=== PATIENT | female | born 1945 | race Caucasian/White ===

== ENCOUNTER → 2022-04-16 | Outpatient (CLI) | payer MEDICARE, MEDICAID, SELFPAY ==
[2022-04-21 09:38] LABS: Calprotectin, Stool 112 ug/g (0-120)
== END | disposition home or self-care (01) ==
LOC: LABSPEC 14:56
PROVIDERS: Referring Provider Nurse Practitioner Adult Health; Visit Provider Nurse Practitioner Adult Health
DX: G10 Huntington's disease (principal); K21.9 Gastro-esophageal reflux disease without esophagitis; R13.10 Dysphagia, unspecified; R19.7 Diarrhea, unspecified; K58.9 Irritable bowel syndrome, unspecified
CPT/HCPCS: 83630; 83993; 87493; 87506

== ENCOUNTER → 2022-04-27 | Outpatient (CLI) | payer MEDICARE, MEDICAID, SELFPAY ==
--- NOTE | 2022-04-27 12:34 | SP.MBSS_ITS ---
Modified Barium Swallow - Patient Information Study Date: 04/27/22 Study Time: 13:00 Direct Billable Minutes: 83 Total Minutes procedure & reportin Diagnosis: Elin's disease (G10), Dysphagia, unspecified (R13.10) Referring Physician: Floresita Abreu NP Reason for Referral: Objectively assess swallow function, assess risk for aspiration, and determine recommendations for least restrictive diet textures and compensatory strategies to improve safety of swallow. 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 Pt was referred for MBSS from gastroenterology DATA PROCESSOR, Floresita Abreu, to assess pt?s complaints of difficulty swallowing. Pt reports daily sore throat which affects her ability to enjoy foods per DATA PROCESSOR?s 04/01/2022 office visit. Prior to study, pt reports sensation of both food and drink caught in her throat at times when swallowing, as well as coughing when consuming both foods and drinks. She denies history of choking. She stated meats and some breads are difficult to chew. Current Diet Ordered: Regular textures / Thin liquids Dentition: Missing Teeth Mental Status: WNL - Able to follow commands for evaluation with repetition Respiratory Status: Oxygenating on Room Air - Penetration-Aspiration Scale Penetration-Aspiration Scale: OBJECTIVE ASSESSMENT OF SWALLOW FUNCTION (QUANTITATIVE ? PER TRIAL): PENETRATION / ASPIRATION SCALE (MAYA): 1 = does not enter airway 2 = enters airway/above vocal folds/ejected 3 = enters airway/above vocal folds/not ejected 4 = enters airway/contacts vocal folds/ejected 5 = enters airway/contacts vocal folds/not ejected 6 = enters airway/below vocal folds/ejected 7 = enters airway/below vocal folds/not ejected despite effort 8 = enters airway/below vocal folds/no effort VIDEOFLOROSCOPIC SCALE SCORE (MAYA): Grade I = aspiration of material that has penetrated into the laryngeal vestibule, intact cough reflex Grade II = aspiration < 10 % of the bolus, intact cough reflex Grade III = aspiration of < 10 % of the bolus, reduced cough reflex or aspiration of > 10 % of the bolus, intact cough reflex Grade IV = aspiration of > 10 % of the bolus, reduced cough reflex - Penetration-Aspiration Scale Score Thin Liquid via teaspoon Result: 1= does not enter airway Thin Liquid via teaspoon Trial 2 Result: 2= enter airway/above vocal folds/ejected Thin Liquid via small single sip from cup Result: 1= does not enter airway [place] Thick Liquid via large single sip from cup Result: 1= does not enter airway Pudding via teaspoon with esophageal screen Result: 1= does not enter airway 1/4 Cookie Result: 1= does not enter airway Thin Liquid via single sip from straw Result: 3= enters airways/above vocal folds/not ejected Thin Liquid via large single sip from cup Result: 1= does not enter airway - Oral Phase Labial Seal: Interlabial escape, no progression to anterior lip Tongue Control During Bolus Hold: Posterior escape of less than half of bolus Bolus Preparation/Mastication: Disorganized chewing/mashing with solid pieces of bolus unchewed Bolus Transport/Lingual Motion: Slowed tongue motion Oral Residue: Residue collection on oral structures - piecemeal of cookie, collection of residue of large sips - Pharyngeal Phase Initiation of Pharyngeal Swallow: Bolus head in pyriforms - laryngeal vestibule for tsp sip of thin Soft Palate Elevation: No bolus between soft palate and pharyngeal wall Laryngeal Elevation: Partial superior movement thyroid cart/partial apprx aryt- epig petiole Anterior Hyoid Excursion: Partial anterior movement Epiglottic Movement: Complete inversion Laryngeal Vestibule Closure at Height of Swallow: Incomplete; narrow column of air/contrast in laryngeal vestibule Pharyngeal Stripping Wave: Present - complete Pharyngoesophageal Segment Opening: Parital distension and partial duration; parital obstruction of flow Tongue Base Retraction: Narrow column of contrast between tongue base & post. pharyngeal wall Pharyngeal Residue: Trace residue within or on pharyngeal structures - Esophageal Phase Esophageal Clearance: Complete clearance - Diagnosis/Impression Diagnosis: Mild-moderate oropharyngeal phase dysphagia (R13.12) Impression: The oral phase is primarily marked by... -Decreased bolus control with <1/2 of the bolus spilling posteriorly to the pyriforms prior to swallow onset observed with large sips of thin liquids especially. Thin by tsp did spill to the laryngeal vestibule on second trial prior to swallow onset. -Slowed tongue motion for A-P transport. -Mild oral residue of large sips of liquid. -Quick mastication, small portions of cookie appeared un-chewed during the swallow. Piecemeal deglutition observed. The pharyngeal phase is primarily marked by... -Mildly decreased airway closure during the swallow due to moderately decreased anterior hyoid excursion and mildly decreased laryngeal elevation. -Mildly decreased tongue base retraction and mildly decreased UES opening/duration with resulting trace pharyngeal residues after the swallow. Ora l residue of large cup sip of thin liquids spilled posteriorly to the pharynx after the swallow was completed. -No aspiration observed during the study; however, cannot definitively rule out aspiration on certain trials as the patient would at times move out of view of fluoroscopy due to extraneous movements secondary to Pawnee's diagnosis. Laryngeal penetration of thin liquids via straw, which did not fully eject from the laryngeal vestibule after the swallow. -Pt had slightly improved swallow onset with thin liquids via cup as compared to thin liquids via straw. The esophageal phase is primarily marked by... -Anterior cervical osteophytes at the level of C-5 and C-6, which did not appear to impact bolus clearance through the UES. - Recommendations Diet: Thin Liquids - Easy to Chew textures (IDDSI Level 7) Compensatory Strategies: Small Bites - chew thoroughly, Small Sips, No Straws, Slow Rate, Sitting upright, Remain sitting upright for 30 minutes after PO intake Supervision: 1:1 Close Supervision Recommend Repeat Modified Barium Swallow: TBD Need for Skilled Speech Therapy Services: Yes Comment: Will recommend the patient for skilled dysphagia therapy to address mild- moderate deficits in oropharyngeal swallow function. Will recommend the patient for oropharyngeal strengthening to improve lingual control, tongue base retraction, laryngeal elevation, and hyoid excursion (lingual resistance exercises, Vee, CTAR, effortful breath hold and swallow). The patient would benefit from thorough education regarding diet recommendations and recommended compensatory strategies, especially to chew more thoroughly and consume small sips. Would consider use of Provale bolus control cup if pt is unable to reliably control sip size given frequent extraneous movements secondary to Pawnee's diagnosis. Education Completed: 1. Described result of evaluation., 2. Pt understands evaluation & agrees with goals and treatment plan., 7. Pt requires further education on strategies & risks. - Status Active ST Patient: Active - Contact Information [facility] Speech Therapy:: Sakshi Paluson M.A. [facility] Speech-Language Pathologist [facility] [address] [place] [address] [email or web address] [phone] 04/27/22 12:38
== END | disposition home or self-care (01) ==
LOC: RAD 12:47
PROVIDERS: PCP Family Medicine; Visit Provider Nurse Practitioner Adult Health
DX: G10 Huntington's disease (principal); R13.12 Dysphagia, oropharyngeal phase
CPT/HCPCS: 74230; 92611

== ENCOUNTER 2022-05-31 10:24 | Day surgery (SDC) | payer MEDICARE, MEDICAID, SELFPAY ==
[2022-05-31] VITALS (7 sets, daily range): BP systolic 106–124; BP diastolic 52–91; PULSE 65–76; RESP 16; TEMP 36.3–36.5; O2SAT 100; BMI 22.6
--- NOTE | 2022-05-31 | COLBX_PTH ---
PATIENT: JUSTICE LUCIA LOC: EN U#:[id number] AGE/SX: 76/F ROOM: RE05/31/[address]: Dr. Zuhair Hallman DO : 1945 BED: DIS: 05/31/2022 SPEC #: [id number] RECD: 05/31/22 13:41 STATUS: MIKAELA VARGAS #: [id number] DANN: 05/31/22 00:[address]: Zuhair Hallman DEPT: SURGICAL PATHOLOGY RECD BY: Joe Matta ENTERED: 06/01/22 10:07 SP TYPE: COLON BX OTHR DR: Dr. Parker Barajas MD Tissues: Transverse colon Procedures: Surgery Specimen Level IV HEADER OPERATION: Colonoscopy, polypectomy, [place] [place]hemostasis PRE-OP DIAGNOSIS: Chronic diarrhea, GERD, dysphagia, Shelby?s disease, anemia TISSUE SUBMITTED: Transverse colon polyp MICROSCOPIC DIAGNOSIS Transverse colon polyp, polypectomy: Tubular adenoma. SJ:rachael 06/02/2022 MICROSCOPIC DESCRIPTION Slides are reviewed. GROSS DESCRIPTION Received in fixative is one container labeled with the patient's name and designated transverse colon polyp. The specimen consists of a colorado-pink polyp measuring 0.8 x 0.7 x 0.3 cm. The specimen is totally submitted in one cassette. / CRISTOBAL:rachael 06/01/2022 TC:1 CPT: 71560
[2022-05-31] MEDS: Lactated Ringers 1,000 ML 15 ML IV (10:40)
--- NOTE | 2022-05-31 10:50 | PCM.HP.BLA ---
History and Physical Date of Admission: 05/31/22 76 F who presents to the office today to establish for GERD, anemia, chronic diarrhea. She is a resident at [facility] in [place]. She has had diarrhea forever, for at least 20 years. But she also tells me she can have constipation also.? It is a bit difficult to get a history today.? She is unaccompanied.? Last colonoscopy was more than 10 yrs ago, hx diverticula and polyps. Says diarrhea is better recently, maybe since going off metformin 3 months ago. Diarrhea used to wake her at night. No longer having diarrhea every day. Certain foods can cause diarrhea. Can't tell me how often diarrhea occurs. No melena or hematochezia. Weight is stable. Decreased appetite, it sounds like this is not new. Pt reports daily heartburn, worse with certain foods, on omeprazole 40 mg daily. In 10/2021 she reported sore throat, was changed from famotidine to PPI then, pt doesn't know if that medication change helped or not. Has sore throat daily, so it can be difficult to enjoy foods. Has trouble swallowing, no choking or food sticking. No swallowing study--pt reports it was scheduled but cancelled, maybe due to bad weather. Sometimes has epigastric pain after eating, and may have some nausea. No vomiting. 11/2021 labs: hgb 10.2, vitamin B12 85 L 03/2022 hgb 10.5 Exam Const General: cooperative and comfortable Nutritional Appearance: average body habitus Orientation: alert, awake and oriented x3 Eyes Conjunctivae: conjunctivae normal Sclera: sclerae normal Resp Effort & Inspection: normal respiratory effort GI Inspection: normal to inspection Palpation: soft, no hepatosplenomegaly, no masses and nontender Neuro Other: mild chorea, in wheelchair Extrem General: normal to inspection Psych Mood: euthymic mood Assessment and Plan Assessment and Plan (1) Chronic diarrhea: ?Status:?Chronic ?Plan: So 26-[facility]-old female [facility] with Elin's disease establishes with us today for GERD, anemia, diarrhea, request for colonoscopy.? We will get stool tests for infection and inflammation.? She will be scheduled for EGD and colonoscopy considering anemia, heartburn, dysphagia, diarrhea. She is on FiberLax which I was considering discontinuing but she also says she can have constipation so no medication changes made at this time. (2) GERD (gastroesophageal reflux disease): ?Status:?Acute ?Plan: EGD to evaluate for esophagitis, dysmotility, stricture, Cardenas's, gastritis, PUD Continue omeprazole 40 mg daily (3) Dysphagia: ?Status:?Acute ?Plan: Refer to Speech for MBSS (4) Sierra's disease: ?Status:?Acute ?Plan: Refer to Speech for MBSS (5) Anemia: ?Status:?Acute ?Plan: EGD and colonoscopy with follow-up in office 2 weeks later ? ? ? Orders: Orders CDIFF (PCR) Today K21.9 - Gastro-esophageal reflux disease without esophagitis, K52.9 - Noninfective gastroenteritis and colitis, unspecified ? ENTERIC PATHOGEN PANEL STOOL Today K58.9 - Irritable bowel syndrome without diarrhea, R19.7 - Diarrhea, unspecified ? Calprotectin, Stool Today K52.9 - Noninfective gastroenteritis and colitis, unspecified ? Stool Lactoferrin/WBC Today K52.9 - Noninfective gastroenteritis and colitis, unspecified, K58.9 - Irritable bowel syndrome without diarrhea ? Referrals Speech Therapy Referral ? G10 - Elin's disease, R13.10 - Dysphagia, unspecified ? I have examined the patient and the H&P has been reviewed. There are no clinical changes since date of exam.
--- NOTE | 2022-05-31 12:09 | OP.EGD_ITS ---
Patient Name: Miya Harp Procedure Date: 05/31/2022 11:33 AM Date of : 1945 Age: 76 Procedure: Upper GI endoscopy Indications: Iron deficiency anemia Providers: Zuhair Hallman DO Medicines: Monitored Anesthesia Care Patient Profile: This is a 76 year old female. Refer to note in patient chart for documentation of history and physical. Patient has symptoms. Complications: No immediate complications. Procedure: Pre-Anesthesia Assessment: - Prior to the procedure, a History and Physical was performed, and patient medications and allergies were reviewed. The patient is competent. The risks and benefits of the procedure and the sedation options and risks were discussed with the patient. All questions were answered and informed consent was obtained. Patient identification and proposed procedure were verified by the physician. Mental Status Examination: normal. Prophylactic Antibiotics: The patient does not require prophylactic antibiotics. Prior Anticoagulants: The patient has taken no previous anticoagulant or antiplatelet agents. ASA Grade Assessment: II - A patient with mild systemic disease. After reviewing the risks and benefits, the patient was deemed in satisfactory condition to undergo the procedure. The anesthesia plan was to use monitored anesthesia care (MAC). Immediately prior to administration of medications, the patient was re-assessed for adequacy to receive sedatives. The heart rate, respiratory rate, oxygen saturations, blood pressure, adequacy of pulmonary ventilation, and response to care were monitored throughout the procedure. The physical status of the patient was re-assessed after the procedure. After obtaining informed consent, the endoscope was passed under direct vision. Throughout the procedure, the patient's blood pressure, pulse, and oxygen saturations were monitored continuously. The pediatric colonoscope was introduced through the mouth, and advanced to the second part of duodenum. The upper GI endoscopy was accomplished without difficulty. The patient tolerated the procedure well. Scope In: 11:37:53 AM Scope Out: 11:41:44 AM Total Procedure Duration Time 0 hours 3 minutes 51 seconds Findings: The examined esophagus was normal. A single 5 mm bleeding angiodysplastic lesion was found on the greater curvature of the stomach. Coagulation for hemostasis using heater probe was successful. Estimated blood loss was minimal. The second portion of the duodenum was normal. Impression: - Normal esophagus. 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 Treated with a heater probe. - Normal second portion of the duodenum. - No specimens collected. Recommendation: - Discharge patient to home. - Resume previous diet. - Continue present medications. Procedure Code(s): --- Professional --- 94208, Esophagogastroduodenoscopy, flexible, transoral; with control of bleeding, any method CPT copyright 2017 [employer]. All rights reserved. The codes documented in this report are preliminary and upon jacker review may be revised to meet current compliance requirements. Zuhair Hallman DO 05/31/2022 12:08:23 PM This report has been signed electronically. Number of Addenda: 0 Note Initiated On: 05/31/2022 11:33 AM
--- NOTE | 2022-05-31 12:09 | OP.CCLET_ITS ---
05/31/2022 Parker Barajas Re : Upper GI endoscopy procedure for Miya Harp Dear Jenn This procedure was performed on Tuesday, May 31, 2022. My impressions and recommendations are as follows: Impressions : - Normal esophagus. 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 Treated with a heater probe. - Normal second portion of the duodenum. - No specimens collected. Recommendations : - Discharge patient to home. - Resume previous diet. - Continue present medications. My findings are described in the full procedure note, which is enclosed. If I can be of further assistance, please feel free to contact me at . Sincerely, Zuhair Hallman, 05/31/2022 12:08:23 PM This report has been signed electronically.
--- NOTE | 2022-05-31 12:13 | OP.COLON_ITS ---
Patient Name: Miya Harp Procedure Date: 05/31/2022 11:42 AM Date of : 1945 Age: 76 Procedure: Colonoscopy Indications: Iron deficiency anemia Providers: Zuhair Hallman DO Medicines: Monitored Anesthesia Care Patient Profile: This is a 76 year old female. Refer to note in patient chart for documentation of history and physical. Patient has symptoms. Last Colonoscopy: date unknown. Unable to locate last colonoscopy report. Complications: No immediate complications. Procedure: Pre-Anesthesia Assessment: - Prior to the procedure, a History and Physical was performed, and patient medications and allergies were reviewed. The patient is competent. The risks and benefits of the procedure and the sedation options and risks were discussed with the patient. All questions were answered and informed consent was obtained. Patient identification and proposed procedure were verified by the physician. Mental Status Examination: normal. Prophylactic Antibiotics: The patient does not require prophylactic antibiotics. Prior Anticoagulants: The patient has taken no previous anticoagulant or antiplatelet agents. ASA Grade Assessment: II - A patient with mild systemic disease. After reviewing the risks and benefits, the patient was deemed in satisfactory condition to undergo the procedure. The anesthesia plan was to use monitored anesthesia care (MAC). Immediately prior to administration of medications, the patient was re-assessed for adequacy to receive sedatives. The heart rate, respiratory rate, oxygen saturations, blood pressure, adequacy of pulmonary ventilation, and response to care were monitored throughout the procedure. The physical status of the patient was re-assessed after the procedure. After I obtained informed consent, the scope was passed under direct vision. Throughout the procedure, the patient's blood pressure, pulse, and oxygen saturations were monitored continuously. The colonoscope was introduced through the anus and advanced to the cecum, identified by appendiceal orifice and ileocecal valve. The colonoscopy was performed without difficulty. The patient tolerated the procedure well. The quality of the bowel preparation was adequate. Scope In: 11:44:04 AM Scope Withdrawal Time 0 hours 5 minutes 33 seconds Scope Out: 11:59:43 AM Total Procedure Duration Time 0 hours 15 minutes 39 seconds Findings: The perianal and digital rectal examinations were normal. A 9 mm polyp was found in the transverse colon. The polyp was sessile. The polyp was removed with a hot snare. Resection and retrieval were complete. Verification of patient identification for the specimen was done. Estimated blood loss was minimal. Multiple small-mouthed diverticula were found in the recto-sigmoid colon, sigmoid colon and transverse colon. The exam was otherwise without abnormality on direct and retroflexion views. Impression: - One 9 mm polyp in the transverse colon, removed with a hot snare. Resected and retrieved. - Diverticulosis in the recto-sigmoid colon, in the sigmoid colon and in the transverse colon. - The examination was otherwise normal on direct and retroflexion views. Recommendation: - Discharge patient to home. - Resume previous diet. - Continue present medications. - Await pathology results. - Repeat colonoscopy in 5 years for surveillance. Procedure Code(s): --- Professional --- 64323, Colonoscopy, flexible; with removal of tumor(s), polyp(s), or other lesion(s) by snare technique CPT copyright 2017 [employer]. All rights reserved. The codes documented in this report are preliminary and upon animal rescuer review may be revised to meet current compliance requirements. Zuhair Hallman DO 05/31/2022 12:13:08 PM This report has been signed electronically. Number of Addenda: 0 Note Initiated On: 05/31/2022 11:42 AM
--- NOTE | 2022-05-31 12:14 | OP.CCLET_ITS ---
05/31/2022 Parker Barajas Re : Colonoscopy procedure for Miya Harp Dear Jenn This procedure was performed on Tuesday, May 31, 2022. My impressions and recommendations are as follows: Impressions : - One 9 mm polyp in the transverse colon, removed with a hot snare. Resected and retrieved. - Diverticulosis in the recto-sigmoid colon, in the sigmoid colon and in the transverse colon. - The examination was otherwise normal on direct and retroflexion views. Recommendations : - Discharge patient to home. - Resume previous diet. - Continue present medications. - Await pathology results. - Repeat colonoscopy in 5 years for surveillance. My findings are described in the full procedure note, which is enclosed. If I can be of further assistance, please feel free to contact me at . Sincerely, Zuhair Hallman, 05/31/2022 12:13:08 PM This report has been signed electronically.
[2022-05-31 12:25] LABS: Bedside Glucose 217 mg/dL (74-106)
== END 2022-05-31 13:07 | disposition home or self-care (01) ==
LOC: EN 10:40 → AC 10:45
PROVIDERS: PCP Family Medicine; Referring Provider Family Medicine; Visit Provider Internal Medicine Gastroenterology
PROC: 0DJD8ZZ Inspection of Lower Intestinal Tract, Via Natural or Artificial Opening Endoscopic (ICD-10-PCS; CPT 45378; principal; 2022-05-31 11:10)
DX: K31.811 Angiodysplasia of stomach and duodenum with bleeding (principal); G10 Huntington's disease; E11.9 Type 2 diabetes mellitus without complications; R13.10 Dysphagia, unspecified; D50.9 Iron deficiency anemia, unspecified; K21.9 Gastro-esophageal reflux disease without esophagitis; K57.30 Diverticulosis of large intestine without perforation or abscess without bleeding; D12.3 Benign neoplasm of transverse colon; I10 Essential (primary) hypertension; Z79.899 Other long term (current) drug therapy; E78.5 Hyperlipidemia, unspecified; E03.9 Hypothyroidism, unspecified; K58.0 Irritable bowel syndrome with diarrhea
CPT/HCPCS: 45385; 43255; 82962; 88305; J7120; J2405

== ENCOUNTER → 2022-08-06 | Outpatient (CLI) | payer MEDICARE, MEDICAID, SELFPAY ==
--- NOTE | 2022-08-06 09:15 | RAD_ITS ---
STUDY: X-RAY - ESOPHAGUS (BARIUM SWALLOW) WITH FLUOROSCOPY REASON FOR EXAM: Female, 76 years old. DYSPHAGIA 12 MM TABLET TECHNIQUE: 17 view(s) of the esophagus were obtained following swallowing of barium. FLUOROSCOPY TIME (if supplied): (42 seconds) minutes/seconds. 16.49 mGy COMPARISON: None. FINDINGS: Limited study due to the patient''s medical condition. There is no demonstrated esophageal foreign body. 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 There is narrowing at the gastroesophageal junction. There appears to be edema of the mucosal folds. Correlation with endoscopy is recommended. Patient was unable to ingest a 12 mm tablet of barium. There is atherosclerotic calcification of the aortic arch with tortuosity of the descending aorta. Normal visualized pulmonary parenchyma. There are diffuse degenerative changes of the visualized thoracic spine. 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 Endoscopic correlation is recommended. Electronically Signed: Jesse Landon MD at 14:58 EDT ,
== END | disposition home or self-care (01) ==
LOC: RAD 08:58
PROVIDERS: PCP Family Medicine; Visit Provider Otolaryngology
DX: R13.10 Dysphagia, unspecified (principal); K21.9 Gastro-esophageal reflux disease without esophagitis
CPT/HCPCS: 74220